=== PATIENT | female | born 1985 | race Hispanic/Latino ===

== ENCOUNTER 2017-07-19 22:57 | Emergency (ER) | payer OTHER ==
[2017-07-19 23:16] VITALS: TEMP 98
--- NOTE | 2017-07-20 00:03 | ED PDOC ---
Arrival/HPI - General Chief Complaint: Upper Extremity Problem/Injury Time Seen by Provider: 07/19/17 23:59 Historian: Patient - History of Present Illness Narrative History of Present Illness (Text): 07/19/17 23:59 32 y/o female, Past Medical History - Infectious Disease Hx of Infectious Diseases: None - Cardiac Hx Hypertension: Yes - Endocrine/Metabolic Hx Diabetes Mellitus Type 2: Yes - Hematological/Oncological Hx Hepatitis B: Yes - Psychiatric Hx Substance Use: No - Surgical History Hx Gastric Bypass Surgery: Yes (Gastric Sleeve) Family/Social History Smoking Status: Never Smoked Hx Alcohol Use: No Hx Substance Use: No Allergies/Home Meds Allergies/Adverse Reactions: Allergies No Known Allergies Allergy (Verified 07/19/17 23:16) Home Medications: Home Meds Medication Instructions Recorded Confirmed No Known Home Med 07/19/17 07/19/17 Physical Exam Vital Signs Temp Pulse Resp BP Pulse Ox 07/19/17 23:12 98.0 F 97 H 16 172/96 H 99 Disposition/Present on Arrival - Present on Arrival History of DVT/PE: No History of Uncontrolled Diabetes: No Urinary Catheter: No History of Decub. Ulcer: No History Surgical Site Infection Following: None - Disposition
--- NOTE | 2017-07-20 00:25 | ED PDOC ---
Arrival/HPI - General Historian: Patient - History of Present Illness Time/Duration: < week Symptom Onset: Sudden Symptom Course: Unchanged Quality: Aching Severity Level: 7 Activities at Onset: Rest, Light Context: Home, Work <Jluis Peña - Last Filed: 07/20/17 01:48> <Jonah Sewell - Last Filed: 07/20/17 01:51> - General Chief Complaint: Upper Extremity Problem/Injury Time Seen by Provider: 07/19/17 23:59 - History of Present Illness Narrative History of Present Illness (Text): 07/20/17 00:20 Ms. Wu is a 32 year old female with a past medical history significant for PCOS and DM2 who [place] [facility] [place] with a chief complaint of intermittent left shoulder pain and chest pain with deep breathing for the past month. Patient states that she has had the left shoulder pain for one months duration. She states that it has been moderately controlled with ibuprofen and changes in her posture and daily routine. Over the past few weeks she also complains of chest pain in the lower left lateral chest wall with deep breathing. She states that this has made her SOB on occasion but denies any SOB when the pain is not present. She denies any trauma, recent travel, clotting/blood disorders or any recent surgery. Patient also denies fever, chills, headache, changes in vision, sore throat, neck pain/stiffness, palpitations, cough, abdominal pain, N/V/D/C, burning/pain with urination, rashes or any numbness/tingling/weakness of any extremity. (Jluis Peña) Past Medical History - Provider Review Nursing Documentation Reviewed: Yes - Travel History Have you recently traveled outside [place] w/in the past 3 mons?: No - Past History Past History: No Previous - Infectious Disease Hx of Infectious Diseases: None - Cardiac Hx Hypertension: Yes - Endocrine/Metabolic Hx Diabetes Mellitus Type 2: Yes - Hematological/Oncological Hx Hepatitis B: Yes - Psychiatric Hx Substance Use: No - Surgical History Hx Gastric Bypass Surgery: Yes (Gastric Sleeve) <Jluis Peña - Last Filed: 07/20/17 01:48> Family/Social History - Physician Review Nursing Documentation Reviewed: Yes Family/Social History: No Known Family HX Smoking Status: Never Smoked Hx Alcohol Use: No Hx Substance Use: No <Jluis Peña - Last Filed: 07/20/17 01:48> Allergies/Home Meds <Jluis Peña - Last Filed: 07/20/17 01:48> <MelodieJonah - Last Filed: 07/20/17 01:51> Allergies/Adverse Reactions: Allergies No Known Allergies Allergy (Verified 07/19/17 23:16) Review of Systems - Physician Review All systems were reviewed & negative as marked: Yes - Review of Systems Constitutional: Normal. absent: Fevers Eyes: Normal. absent: Vision Changes ENT: Normal Respiratory: SOB (a/w chest pain only). absent: Normal, Cough, Sputum, Wheezing Cardiovascular: Chest Pain (Lower left lateral chest wall). absent: Normal, Palpitations Gastrointestinal: Normal. absent: Abdominal Pain, Constipation, Diarrhea, Nausea, Vomiting Genitourinary Female: Normal Musculoskeletal: Arthralgias (Left shoulder pain). absent: Normal, Back Pain, Neck Pain, Myalgias Skin: Normal. absent: Rash Neurological: Normal. absent: Headache Endocrine: Normal Hemo/Lymphatic: Normal Psychiatric: Normal <Jluis Peña - Last Filed: 07/20/17 01:48> Physical Exam Vital Signs Reviewed: Yes Temperature: Afebrile Blood Pressure: Hypertensive Pulse: Regular Respiratory Rate: Normal Appearance: Positive for: Well-Appearing, Non-Toxic, Comfortable Pain Distress: None Mental Status: Positive for: Alert and Oriented X 3 - Systems Exam Head: Present: Atraumatic, Normocephalic Pupils: Present: PERRL Extroacular Muscles: Present: EOMI Conjunctiva: Present: Normal Mouth: Present: Moist Mucous Membranes Neck: Present: Normal Range of Motion, Trachea Midline. No: Meningeal Signs, MIDLINE TENDERNESS, Paraspinal Tenderness, JVD, Lymphadenopathy Respiratory/Chest: Present: Clear to Auscultation, Good Air Exchange, Tender to Palpation (TTP on lower left lateral chest wall). No: Respiratory Distress, Accessory Muscle Use, Wheezes, Decreased Breath Sounds, Rales, Rhonchi, Tachypneic Cardiovascular: Present: Regular Rate and Rhythm, Normal S1, S2, Peripheal Pulses Present. No: Murmurs, Irregular Rhythm, Tachycardic, Bradycardic Abdomen: Present: Normal Bowel Sounds. No: Tenderness, Distention, Peritoneal Signs Back: Present: Normal Inspection. No: CVA Tenderness, Midline Tenderness, Paraspinal Tenderness Upper Extremity: Present: NORMAL PULSES, Tenderness (Left shoulder/trap tenderness), Neurovascularly Intact, Capillary Refill < 2s, Other ( Hypertonicity of left upper trapezius). No: Normal Inspection, Cyanosis, Edema , Normal ROM (Decreased ROM in L shoulder d/t pain), Swelling, Erythema, Temperature Abnormalties, Deformity Lower Extremity: Present: Normal Inspection, NORMAL PULSES, Normal ROM. No: Edema, CALF TENDERNESS, Otilia's Sign Neurological: Present: GCS=15, CN II-XII Intact, Speech Normal Skin: Present: Warm, Dry, Normal Color. No: Rashes Lymphatic: No: Cervical Adenopathy Psychiatric: Present: Alert, Oriented x 3, Normal Insight, Normal Concentration <Jluis Peña - Last Filed: 07/20/17 01:48> Vital Signs Temp Pulse Resp BP Pulse Ox 07/20/17 01:42 90 18 150/90 98 07/20/17 00:42 97 H 18 152/102 H 100 07/19/17 23:12 98.0 F 97 H 16 172/96 H 99 Medical Decision Making - RAD Interpretation [employer]: ED Physician <Jluis Peña - Last Filed: 07/20/17 01:48> <Jonah Sewell - Last Filed: 07/20/17 01:51> ED Course and Treatment: 07/20/17 00:28 Impression: 32 year old female with a past medical history significant for PCOS and DM2 who [place] [facility] [place] with a chief complaint of intermittent left shoulder pain and chest pain with deep breathing for the past month Plan: -Ibuprofen, Tylenol and Flexeril PO -Chest X-Ray -Left shoulder X-ray -Reassess and disposition Prior Visits: No previous visits (Jluis Peña) Impression: Pt seen and evaluated with medical billing instructor. Pt, whose past medical history includes PCOS and diabetes, presented for left shoulder pain and chest pain with deep inspiration.Aware and agree with HPI, clinical findings, plan, and management. Plan: -- Chest X-ray -- XR Left Shoulder -- Motrin -- Tylenol -- Flexeril -- Reassess and disposition (Jonah Sewell) - RAD Interpretation Radiology Orders: 07/20/17 00:05 CHEST PORTABLE [RAD] Stat 07/20/17 00:07 SHOULDER LEFT [RAD] Stat - Medication Orders Current Medication Orders: Discontinued Medications Acetaminophen (Tylenol 325mg Tab) 975 mg PO STAT STA Stop: 07/20/17 00:07 Last Admin: 07/20/17 00:21 Dose: 975 mg Cyclobenzaprine HCl (Flexeril) 10 mg PO STAT STA Stop: 07/20/17 00:07 Last Admin: 07/20/17 00:21 Dose: 10 mg Ibuprofen (Motrin Tab) 600 mg PO STAT STA Stop: 07/20/17 00:07 Last Admin: 07/20/17 00:21 Dose: 600 mg - PA / INSULATION AND FLOORING ASSEMBLER / Resident Statement / has reviewed & agrees with the documentation as recorded. / has examined the patient and agrees with the treatment plan. <Jonah Sewell - Last Filed: 07/20/17 01:51> Disposition/Present on Arrival - Present on Arrival Any Indicators Present on Arrival: No History of DVT/PE: No History of Uncontrolled Diabetes: No Urinary Catheter: No History of Decub. Ulcer: No History Surgical Site Infection Following: None - Disposition Have Diagnosis and Disposition been Completed?: Yes Disposition Time: :31 Patient Plan: Discharge <Jluis Peña - Last Filed: 07/20/17 01:48> <Jonah Sewell - Last Filed: 07/20/17 01:51> - Disposition Diagnosis: Left shoulder pain Disposition: HOME/ ROUTINE Condition: STABLE Discharge Instructions (ExitCare): Thoracic Pain (ED), Shoulder Pain (ED) Additional Instructions: Ms. Wu, thank you for letting us take care of you today. Your provider was Dr. Sewell. You were treated for left shoulder pain and thoracic pain. The emergency medical care you received today was directed at your acute symptoms. If you were prescribed any medication, please fill it and take as directed. It may take several days for your symptoms to resolve. Return to the Emergency Department if your symptoms worsen, do not improve, or if you have any other problems. Please contact your doctor or call one of the physicians/clinics you have been referred to that are listed on the Patient Visit Information form that is included in your discharge packet. Bring any paperwork you were given at discharge with you along with any medications you are taking to your follow up visit. Our treatment cannot replace ongoing medical care by a primary care provider (PCP) outside of the emergency department. PLEASE FOLLOW UP WITH YOUR PRIMARY CARE DOCTOR WITHIN ONE TO TWO WEEKS Thank you for allowing the [facility] team to be part of your care today. If you had an X-Ray or CT scan: A Radiologist will review the ED reading if any change in treatment is needed we will contact you. Prescriptions: Cyclobenzaprine [Flexeril] 10 mg PO TID PRN #15 tab PRN Reason: Pain, Severe (8-10) Naproxen 500 mg PO BID PRN #20 tab PRN Reason: Pain, Moderate (4-7) Referrals: [facility], [Primary Care Provider] - Follow up with primary Eric Montalvo III, MD [Medical Doctor] - Follow up with primary Forms: [employer] (Luxembourgish), WORK NOTE
[2017-07-20 00:44] VITALS: RESP 18
[2017-07-20 01:43] VITALS: BP 150/90; PULSE 90; O2SAT 98
--- NOTE | 2017-07-20 08:21 | RAD ---
PROCEDURE: Radiographs of the Left Shoulder HISTORY: Left shoulder pain COMPARISON: No prior. FINDINGS: BONES: Normal. No fracture. JOINTS: Normal. Glenohumeral and acromioclavicular joints preserved. No osteoarthritis. SOFT TISSUES: Normal. OTHER FINDINGS: None. IMPRESSION: Normal radiographs of the left shoulder.
--- NOTE | 2017-07-20 08:22 | RAD ---
HISTORY: Pain with breathing COMPARISON: No prior. FINDINGS: LUNGS: No active pulmonary disease. PLEURA: No significant pleural effusion identified, no pneumothorax apparent. CARDIOVASCULAR: Normal. OSSEOUS STRUCTURES: No significant abnormalities. VISUALIZED UPPER ABDOMEN: Normal. OTHER FINDINGS: None. IMPRESSION: No active disease.
== END 2017-07-20 01:45 | disposition home or self-care (01) ==
LOC: MERGE 22:57 → ED 22:57
DX: M25.512 Pain in left shoulder (principal); I10 Essential (primary) hypertension; E11.9 Type 2 diabetes mellitus without complications; Z98.84 Bariatric surgery status; E28.2 Polycystic ovarian syndrome

== ENCOUNTER 2018-06-15 05:25 | Inpatient (IN) | payer BC, OTHER ==
--- NOTE | 2018-06-15 06:00 | ED PDOC ---
Arrival/HPI - General Chief Complaint: Shortness Of Breath Time Seen by Provider: 06/15/18 05:30 Historian: Patient - Critical Care Critical Care Minutes: 30 minutes - History of Present Illness Narrative History of Present Illness (Text): 06/15/18 05:55 32 year old female, whose past medical history includes diabetes, Gastric sleeve, and PCOS, presents with chest discomfort and shortness of breath since last night. Patient states the pain feels like a pressure sensation to chest. Patient states she has been having symptoms intermittently yesterday as well. Patient informs of a history of not taking her blood sugar medication. Patient also states she has a history of hypertensions which she does not take medication for. Patient denies any back pain or leg pain.No fever/chills. Time/Duration: 24 hours Symptom Course: Unchanged Quality: Pressure Context: Home Past Medical History - Provider Review Nursing Documentation Reviewed: Yes - Past History Past History: No Previous - Infectious Disease Hx of Infectious Diseases: None - Cardiac Hx Hypertension: Yes - Pulmonary Hx Respiratory Disorders: No - Neurological Hx Neurological Disorder: No - HEENT Hx HEENT Disorder: No - Renal Hx Renal Disorder: No - Endocrine/Metabolic Hx Diabetes Mellitus Type 2: Yes - Hematological/Oncological Hx Hepatitis B: Yes - Integumentary Hx Dermatological Disorder: No - Musculoskeletal/Rheumatological Hx Musculoskeletal Disorders: No Hx Falls: No - Gastrointestinal Hx Gastrointestinal Disorders: Yes (HX: HEP B) - Genitourinary/Gynecological Hx Genitourinary Disorders: Yes - Psychiatric Hx Psychophysiologic Disorder: No Hx Substance Use: No - Surgical History Hx Gastric Bypass Surgery: Yes (Gastric Sleeve) - Anesthesia Hx Anesthesia: Yes Family/Social History - Physician Review Nursing Documentation Reviewed: Yes Family/Social History: No Known Family HX Smoking Status: Never Smoked Hx Alcohol Use: No Hx Substance Use: No Allergies/Home Meds Allergies/Adverse Reactions: Allergies No Known Allergies Allergy (Verified 06/15/18 05:36) Home Medications: Home Meds Medication Instructions Recorded Confirmed No Known Home Med 06/15/18 06/15/18 Review of Systems - Physician Review All systems were reviewed & negative as marked: Yes - Review of Systems Respiratory: SOB Cardiovascular: Chest Pain (chest discomfort) Musculoskeletal: absent: Back Pain, Other (leg pain) Physical Exam Vital Signs Reviewed: Yes Vital Signs Pulse Resp BP Pulse Ox 06/15/18 05:40 112 H 18 179/100 H 100 Blood Pressure: Hypertensive Pulse: Tachycardic Respiratory Rate: Normal Appearance: Positive for: Well-Appearing, Non-Toxic, Comfortable Pain Distress: None Mental Status: Positive for: Alert and Oriented X 3 - Systems Exam Head: Present: Atraumatic, Normocephalic Pupils: Present: PERRL Extroacular Muscles: Present: EOMI Conjunctiva: Present: Normal Ears: Present: NORMAL TM Mouth: Present: Moist Mucous Membranes Pharnyx: Present: Normal Neck: Present: Normal Range of Motion Respiratory/Chest: Present: Clear to Auscultation, Good Air Exchange. No: Respiratory Distress, Accessory Muscle Use Cardiovascular: Present: Normal S1, S2, Tachycardic. No: Murmurs Abdomen: No: Tenderness, Distention, Peritoneal Signs Back: Present: Normal Inspection Upper Extremity: Present: Normal Inspection. No: Cyanosis, Edema Lower Extremity: Present: Normal Inspection, CALF TENDERNESS. No: Edema, Swelling Neurological: Present: GCS=15, CN II-XII Intact, Speech Normal, Motor Func Grossly Intact, Normal Sensory Function Skin: Present: Warm, Dry, Normal Color. No: Rashes Psychiatric: Present: Alert, Oriented x 3, Normal Insight, Normal Concentration Medical Decision Making ED Course and Treatment: 06/15/18 06:02 Impression: 32 year old female presents with chest discomfort and shortness of breath. Plan: -- EKG -- Chest X-ray -- Labs -- Reassess and disposition Prior Visits: Notes and results from previous visits were reviewed. Progress Notes: 06/15/18 06:38 CXR-No acute process - EKG Interpretation EKG Interpretation (Text): 06/15/18 06:20 EKG- Sinus tachycardia @103,NSSTT changes Interpreted by ED Physician: Yes Type: 12 lead EKG - Scribe Statement The provider has reviewed the documentation as recorded by the Shahram Prabhakar Provider Scribe Attestation: All medical record entries made by the Scribe were at my direction and personally dictated by me. I have reviewed the chart and agree that the record accurately reflects my personal performance of the history, physical exam, medical decision making, and the department course for this patient. I have also personally directed, reviewed, and agree with the discharge instructions and disposition. Disposition/Present on Arrival - Present on Arrival Any Indicators Present on Arrival: No History of DVT/PE: No History of Uncontrolled Diabetes: No Urinary Catheter: No History of Decub. Ulcer: No History Surgical Site Infection Following: None - Disposition Have Diagnosis and Disposition been Completed?: No Diagnosis: Chest pain, DKA (diabetic ketoacidosis) Disposition: HOSPITALIZED Disposition Time: 07:00 Patient Problems: Current Active Problems Problem Status Onset Chest pain Acute Condition: GUARDED Discharge Instructions (ExitCare): Chest Pain (ED) Forms: [employer] (Chinese)
[2018-06-15 06:26] LABS: MEAN CELL VOLUME 85.5 fl (80.0-105.0); MEAN CORPUSCULAR HEMOGLOBIN 29.3 pg (25.0-35.0); MEAN CORPUSCULAR HGB CONC 34.2 g/dl (31.0-37.0); MEAN PLATELET VOLUME 10.5 fl (7.0-11.0); RBC 5.12 10^6/uL (3.5-6.1); WHITE BLOOD COUNT 14.4 10^3/uL (4.5-11.0)
[2018-06-15 06:35] LABS: INR 0.91; PROTHROMBIN TIME 10.5 SECONDS (9.4-12.5)
[2018-06-15 06:46] LABS: ALB/GLOB RATIO 0.9 (1.1-1.8); ALBUMIN 4.7 g/dL (3.0-4.8); ALT/SGPT 24 U/L (7-56); AST/SGOT 33 U/L (14-36); BLOOD UREA NITROGEN 27 mg/dL (7-21); CALCIUM 9.5 mg/dL (8.4-10.5); GFR NON-AFRICAN AMERICAN > 60
[2018-06-15 06:47] LABS: B-TYPE NATRIURETIC PEPTIDE 50.6 pg/mL (0-450)
[2018-06-15] MEDS ORDERED: Sodium Chloride 0.9% 1,000 ML IV STA ×3 (06:51→11:23)
[2018-06-15] MEDS ORDERED: Insulin Regular 1 UNITS/0.01 ML ML IVP STA (06:54)
[2018-06-15] MEDS ORDERED: Insulin Regular 100 UNITS in Sodium Chloride 0.9% 99 ML IV PRN (06:55)
[2018-06-15 07:34] LABS: TROPONIN I < 0.01 ng/mL
[2018-06-15 07:42] LABS: ARTERIAL BLOOD GAS HEMOGLOBIN 14.1 g/dL (11.7-17.4); ARTERIAL BLOOD GAS O2 CAPACITY 19.9 mL/dl (16-24); ARTERIAL BLOOD GAS O2 CONTENT 19.4 ML/dl (15-23); ARTERIAL BLOOD GAS O2 SAT 97.5 % (95-98); ARTERIAL BLOOD GAS PCO2 14 mm/Hg (35-45); ARTERIAL BLOOD GAS TCO2 5.6 mmol.L (22-28)
[2018-06-15 07:45] LABS: ARTERIAL BLOOD GAS HCO3 5.2 mmol/L (21-28); ARTERIAL BLOOD GAS PH 7.18 (7.35-7.45)
[2018-06-15] MEDS ORDERED: Sodium Chloride 0.9% 1,000 ML IV SCH (09:45)
--- NOTE | 2018-06-15 10:06 | RAD ---
HISTORY: sob COMPARISON: Chest x-ray performed 07/20/17 TECHNIQUE: Chest, one view. FINDINGS: Examination limited by habitus. LUNGS: No focal consolidation. Please note that chest x-ray has limited sensitivity for the detection of pulmonary masses. PLEURA: No significant pleural effusion identified. No definite pneumothorax . CARDIOVASCULAR: The cardiomediastinal silhouette appears within normal limits of size. No significant atherosclerotic calcification present. OSSEOUS STRUCTURES: No acute osseous abnormality identified. VISUALIZED UPPER ABDOMEN: Unremarkable. OTHER FINDINGS: None. IMPRESSION: No focal consolidation, significant pleural effusion, or definite pneumothorax identified.
--- NOTE | 2018-06-15 11:17 | CARD ---
APPROVED REPORT Date of service: 06/15/2018 EKG Measurement Heart [id number] <Conclusion> Sinus tachycardia NSSTW changes
--- NOTE | 2018-06-15 11:23 | CP.PCM.CON ---
<Justin Quispe - Last Filed: 06/15/18 14:30> History of Present Illness - History of Present Illness History of Present Illness: CRITICAL CARE PROGRESS NOTE FOR DR. SOL Quispe PGY-1 CC: Shortness of breath 32 y/o F with PMHx of DM (diagnosed [id number]) non-compliant with meds, gastric sleeve (2015), PCOS, HTN [place] [facility] [place] with complaints of chest discomfort and difficulty breathing since last night. She reports that she recently has a upper respiratory infection about 2 weeks ago and was treated with ceftriaxone and solu-medrol. She also reports polyuria, polydipsia and episode of vomiting. She denies fevers, chills, headache, dizziness, chest palpitations, constipation, diarrhea. PMHx: DM, PCOS, HTN PSH: Gastric sleeve (2015) All: NKDA FH: Mother: DM, Father: [place], Prediabetes Meds: Metformin, PMD: Dr. Baumann Review of Systems - Review of Systems Review of Systems: per HPI Past Patient History - Infectious Disease Hx of Infectious Diseases: None - Past Medical History & Family History Past Medical History?: Yes - Past Social History Smoking Status: Never Smoked - CARDIAC Hx Hypertension: Yes - PULMONARY Hx Respiratory Disorders: No - NEUROLOGICAL Hx Neurological Disorder: No - HEENT Hx HEENT Problems: No - RENAL Hx Chronic Kidney Disease: No - ENDOCRINE/METABOLIC Hx Diabetes Mellitus Type 2: Yes - HEMATOLOGICAL/ONCOLOGICAL Hx Hepatitis B: Yes - INTEGUMENTARY Hx Dermatological Problems: No - MUSCULOSKELETAL/RHEUMATOLOGICAL Hx Musculoskeletal Disorders: No Hx Falls: No - GASTROINTESTINAL Hx Gastrointestinal Disorders: Yes (HX: HEP B) - GENITOURINARY/GYNECOLOGICAL Hx Genitourinary Disorders: Yes - PSYCHIATRIC Hx Psychophysiologic Disorder: No Hx Substance Use: No - SURGICAL HISTORY Hx Gastric Bypass Surgery: Yes (Gastric Sleeve) - ANESTHESIA Hx Anesthesia: Yes Meds Allergies/Adverse Reactions: Allergies Allergy/AdvReac Type Severity Reaction Status Date / Time No Known Allergies Allergy Verified 06/15/18 13:39 - Medications Medications: Current Medications Insulin Human Regular 100 (units/ Sodium Chloride) 100 mls @ 8 mls/hr IV .[id number] PRN; Protocol PRN Reason: TITRATE PER MD ORDER Last Titration: 06/15/18 10:05 Dose: 5 units/hr, 5 mls/hr Sodium Chloride (Sodium Chloride 0.9%) 1,000 mls @ 100 mls/hr IV .Q10H ZA Last Admin: 06/15/18 09:50 Dose: 100 mls/hr Physical Exam - Constitutional Appears: Well, Non-toxic, No Acute Distress - Head Exam Head Exam: NORMAL INSPECTION, NORMOCEPHALIC - Eye Exam Eye Exam: EOMI, Normal appearance - ENT Exam ENT Exam: Mucous Membranes Moist, Normal Exam - Neck Exam Neck exam: Positive for: Normal Inspection. Negative for: Meningismus - Respiratory Exam Respiratory Exam: Clear to Auscultation Bilateral, NORMAL BREATHING PATTERN - Cardiovascular Exam Cardiovascular Exam: Tachycardia, +S1, +S2 - GI/Abdominal Exam GI & Abdominal Exam: Soft. absent: Tenderness - Extremities Exam Extremities exam: Positive for: normal inspection. Negative for: calf tenderness - Back Exam Back exam: NORMAL INSPECTION - Neurological Exam Neurological exam: Alert, CN II-XII Intact, Oriented x3 - Psychiatric Exam Psychiatric exam: Normal Affect, Normal Mood - Skin Skin Exam: Dry, Intact, Warm Results - Vital Signs Recent Vital Signs: Last Vital Signs Temp 98.0 F 06/15/18 08:21 Pulse 98 H 06/15/18 10:10 Resp 32 H 06/15/18 10:10 BP 141/89 06/15/18 10:00 Pulse Ox 100 06/15/18 10:10 - Labs Result Diagrams: 06/15/18 06:00 06/15/18 06:00 Labs: Laboratory Results - last 24 hr 06/15/18 06/15/18 06/15/18 06:00 06:00 06:00 WBC 14.4 H RBC 5.12 Hgb 15.0 Hct 43.8 MCV 85.5 MCH 29.3 MCHC 34.2 RDW 13.0 Plt Count 322 MPV 10.5 PT 10.5 INR 0.91 APTT 26.0 D-Dimer, Quantitative 298 H pCO2 pO2 HCO3 ABG pH ABG Total CO2 ABG O2 Saturation ABG O2 Content ABG Base Excess ABG Hemoglobin ABG Carboxyhemoglobin POC ABG HHb (Measured) ABG Methemoglobin ABG O2 Capacity Hgb O2 Saturation FiO2 Sodium 136 Potassium 5.3 H Chloride 104 Carbon Dioxide 7 L Anion Gap 31 H BUN 27 H Creatinine 0.7 Est GFR ( Amer) > 60 Est GFR (Non-Af Amer) > 60 POC Glucose (mg/dL) Random Glucose 593 H* Calcium 9.5 Phosphorus Magnesium Total Bilirubin 0.6 AST 33 ALT 24 Alkaline Phosphatase 111 Lactate Dehydrogenase 736 H Total Creatine Kinase 58 Troponin I < 0.01 NT-Pro-B Natriuret Pep 50.6 Total Protein 9.8 H Albumin 4.7 Globulin 5.1 Albumin/Globulin Ratio 0.9 L 06/15/18 06/15/18 06/15/18 06:00 07:01 07:40 WBC RBC Hgb Hct MCV MCH MCHC RDW Plt Count MPV PT INR APTT D-Dimer, Quantitative pCO2 14 L* pO2 144.0 H HCO3 5.2 L* ABG pH 7.18 L* ABG Total CO2 5.6 L ABG O2 Saturation 97.5 ABG O2 Content 19.4 ABG Base Excess -20.7 L ABG Hemoglobin 14.1 ABG Carboxyhemoglobin 0.3 L POC ABG HHb (Measured) 2.5 ABG Methemoglobin 0.5 ABG O2 Capacity 19.9 Hgb O2 Saturation 96.7 FiO2 21.0 Sodium Potassium Chloride Carbon Dioxide Anion Gap BUN Creatinine Est GFR ( Amer) Est GFR (Non-Af Amer) POC Glucose (mg/dL) 427 H* Random Glucose Calcium Phosphorus 6.3 H Magnesium 2.6 H Total Bilirubin AST ALT Alkaline Phosphatase Lactate Dehydrogenase Total Creatine Kinase Troponin I NT-Pro-B Natriuret Pep Total Protein Albumin Globulin Albumin/Globulin Ratio 06/15/18 06/15/18 08:46 09:55 WBC RBC Hgb Hct MCV MCH MCHC RDW Plt Count MPV PT INR APTT D-Dimer, Quantitative pCO2 pO2 HCO3 ABG pH ABG Total CO2 ABG O2 Saturation ABG O2 Content ABG Base Excess ABG Hemoglobin ABG Carboxyhemoglobin POC ABG HHb (Measured) ABG Methemoglobin ABG O2 Capacity Hgb O2 Saturation FiO2 Sodium Potassium Chloride Carbon Dioxide Anion Gap BUN Creatinine Est GFR ( Amer) Est GFR (Non-Af Amer) POC Glucose (mg/dL) 360 H 252 H Random Glucose Calcium Phosphorus Magnesium Total Bilirubin AST ALT Alkaline Phosphatase Lactate Dehydrogenase Total Creatine Kinase Troponin I NT-Pro-B Natriuret Pep Total Protein Albumin Globulin Albumin/Globulin Ratio Assessment & Plan - Assessment and Plan (Free Text) Assessment: 32 y/o F with PMHx of DM, HTN, PCOS presented [place] [facility] [place] complaints of shortness of breath and chest tightness. She was found in the ED to have glucose level in the ED of 427 with an anion gap of 25. She was given an insulin bolus of 10u, give 2L bolus of NS and started on an insulin drip. She was transferred to ICU for management of DKA. Plan: Neuro: AxO x 3 No focal deficits Reorient as necessary Cardiovascular: RRR BP: 140s/90s Maintain MAP>65 Initial troponin (-) Pulm: CTA b/l Saturating well on 2L NC Maintain saturations >90% GI: Resume diet when anion gap closes and pt can tolerate food 2L NS bolus give. Continue 1 more L NS bolus NS@100mls/hr /Renal: Received 3L bolus of NS Switch to D5/1/2NS once glucose drops below BMP q4h FS q1H ABG shows metabolic acidosis with respiratory alkalosis Endocrine: DKA Continue insulin drip @8u/hr Complete 3rd NS 1L bolus Start D5/1/2NS @150 when glucose <200 Switch to SC insulin when anion gap <12 BMP q4H FS q1h Heme: H/H stable Coags stable ID: Afebrile Leukocytosis at 14.4 Likely reactive DVT/GI PPx: Hep/Ptx Case seen, examined and discussed with attending physician, Dr. Adames <Paige Adames - Last Filed: 06/15/18 16:16> Meds - Medications Medications: Current Medications Heparin Sodium (Porcine) (Heparin) 5,000 units SC Q12 ZA; Protocol Dextrose/Sodium Chloride (Dextrose 5%/0.45% Ns 1000 Ml) 1,000 mls @ 150 mls/hr IV .Q6H40M ZA Last Admin: 06/15/18 12:30 Dose: 150 mls/hr Insulin Detemir (Levemir) 30 unit SC HS ZA Insulin Human Lispro (Humalog) 10 units SC AC ZA Last Admin: 06/15/18 15:10 Dose: 10 u Pantoprazole Sodium (Protonix Inj) 40 mg IVP DAILY ZA Results - Vital Signs Recent Vital Signs: Last Vital Signs Temp 98.0 F 06/15/18 08:21 Pulse 90 06/15/18 15:10 Resp 16 06/15/18 15:10 BP 147/82 06/15/18 15:00 Pulse Ox 100 06/15/18 15:10 - Labs Result Diagrams: 06/15/18 06:00 06/15/18 13:40 Labs: Laboratory Results - last 24 hr 06/15/18 06/15/18 06/15/18 06:00 06:00 06:00 WBC 14.4 H RBC 5.12 Hgb 15.0 Hct 43.8 MCV 85.5 MCH 29.3 MCHC 34.2 RDW 13.0 Plt Count 322 MPV 10.5 PT 10.5 INR 0.91 APTT 26.0 D-Dimer, Quantitative 298 H pCO2 pO2 HCO3 ABG pH ABG Total CO2 ABG O2 Saturation ABG O2 Content ABG Base Excess ABG Hemoglobin ABG Carboxyhemoglobin POC ABG HHb (Measured) ABG Methemoglobin ABG O2 Capacity Hgb O2 Saturation FiO2 Sodium 136 Potassium 5.3 H Chloride 104 Carbon Dioxide 7 L Anion Gap 31 H BUN 27 H Creatinine 0.7 Est GFR ( Amer) > 60 Est GFR (Non-Af Amer) > 60 POC Glucose (mg/dL) Random Glucose 593 H* Hemoglobin A1c Calcium 9.5 Phosphorus Magnesium Total Bilirubin 0.6 AST 33 ALT 24 Alkaline Phosphatase 111 Lactate Dehydrogenase 736 H Total Creatine Kinase 58 Troponin I < 0.01 NT-Pro-B Natriuret Pep 50.6 Total Protein 9.8 H Albumin 4.7 Globulin 5.1 Albumin/Globulin Ratio 0.9 L 06/15/18 06/15/18 06/15/18 06:00 06:00 07:01 WBC RBC Hgb Hct MCV MCH MCHC RDW Plt Count MPV PT INR APTT D-Dimer, Quantitative pCO2 pO2 HCO3 ABG pH ABG Total CO2 ABG O2 Saturation ABG O2 Content ABG Base Excess ABG Hemoglobin ABG Carboxyhemoglobin POC ABG HHb (Measured) ABG Methemoglobin ABG O2 Capacity Hgb O2 Saturation FiO2 Sodium Potassium Chloride Carbon Dioxide Anion Gap BUN Creatinine Est GFR ( Amer) Est GFR (Non-Af Amer) POC Glucose (mg/dL) 427 H* Random Glucose Hemoglobin A1c 12.0 H Calcium Phosphorus 6.3 H Magnesium 2.6 H Total Bilirubin AST ALT Alkaline Phosphatase Lactate Dehydrogenase Total Creatine Kinase Troponin I NT-Pro-B Natriuret Pep Total Protein Albumin Globulin Albumin/Globulin Ratio 06/15/18 06/15/18 06/15/18 07:40 08:46 09:55 WBC RBC Hgb Hct MCV MCH MCHC RDW Plt Count MPV PT INR APTT D-Dimer, Quantitative pCO2 14 L* pO2 144.0 H HCO3 5.2 L* ABG pH 7.18 L* ABG Total CO2 5.6 L ABG O2 Saturation 97.5 ABG O2 Content 19.4 ABG Base Excess -20.7 L ABG Hemoglobin 14.1 ABG Carboxyhemoglobin 0.3 L POC ABG HHb (Measured) 2.5 ABG Methemoglobin 0.5 ABG O2 Capacity 19.9 Hgb O2 Saturation 96.7 FiO2 21.0 Sodium Potassium Chloride Carbon Dioxide Anion Gap BUN Creatinine Est GFR ( Amer) Est GFR (Non-Af Amer) POC Glucose (mg/dL) 360 H 252 H Random Glucose Hemoglobin A1c Calcium Phosphorus Magnesium Total Bilirubin AST ALT Alkaline Phosphatase Lactate Dehydrogenase Total Creatine Kinase Troponin I NT-Pro-B Natriuret Pep Total Protein Albumin Globulin Albumin/Globulin Ratio 06/15/18 06/15/18 06/15/18 11:10 11:59 13:01 WBC RBC Hgb Hct MCV MCH MCHC RDW Plt Count MPV PT INR APTT D-Dimer, Quantitative pCO2 pO2 HCO3 ABG pH ABG Total CO2 ABG O2 Saturation ABG O2 Content ABG Base Excess ABG Hemoglobin ABG Carboxyhemoglobin POC ABG HHb (Measured) ABG Methemoglobin ABG O2 Capacity Hgb O2 Saturation FiO2 Sodium Potassium Chloride Carbon Dioxide Anion Gap BUN Creatinine Est GFR ( Amer) Est GFR (Non-Af Amer) POC Glucose (mg/dL) 198 H 182 H 145 H Random Glucose Hemoglobin A1c Calcium Phosphorus Magnesium Total Bilirubin AST ALT Alkaline Phosphatase Lactate Dehydrogenase Total Creatine Kinase Troponin I NT-Pro-B Natriuret Pep Total Protein Albumin Globulin Albumin/Globulin Ratio 06/15/18 06/15/18 13:40 14:13 WBC RBC Hgb Hct MCV MCH MCHC RDW Plt Count MPV PT INR APTT D-Dimer, Quantitative pCO2 pO2 HCO3 ABG pH ABG Total CO2 ABG O2 Saturation ABG O2 Content ABG Base Excess ABG Hemoglobin ABG Carboxyhemoglobin POC ABG HHb (Measured) ABG Methemoglobin ABG O2 Capacity Hgb O2 Saturation FiO2 Sodium 138 Potassium 4.1 Chloride 112 H Carbon Dioxide 14 L Anion Gap 16 BUN 18 Creatinine 0.4 L Est GFR ( Amer) > 60 Est GFR (Non-Af Amer) > 60 POC Glucose (mg/dL) 151 H Random Glucose 151 H Hemoglobin A1c Calcium 8.3 L Phosphorus Magnesium Total Bilirubin AST ALT Alkaline Phosphatase Lactate Dehydrogenase Total Creatine Kinase Troponin I NT-Pro-B Natriuret Pep Total Protein Albumin Globulin Albumin/Globulin Ratio Addendum Addendum: 06/15/18 16:15 ICU Attending Addendum Patient seen and examined. Case reviewed on round with housestaff. Agree with resident note above with the following additions/exceptions: 32F with hx of gastric sleeve in 2016 and DM2 dx prior to that here with DKA due to non-compliance has not followed up with medical care gap acidosis cont insulin drip change fluids to D51/2 when finger stick <250 transition of insulin IV to SQ once gap closed and bicarb normalized diabetic diet diabetic education - I spent 20 minutes counseling her on important of dm control and risk associated with poor control rest of care above Paige Adames MD [employer] Field Supervisor
[2018-06-15] MEDS ORDERED: Dextrose 5%/0.45% NS 1,000 ML IV SCH (12:15)
[2018-06-15 14:10] LABS: BLOOD UREA NITROGEN 18 mg/dL (7-21); CALCIUM 8.3 mg/dL (8.4-10.5); GFR NON-AFRICAN AMERICAN > 60
[2018-06-15] MEDS ORDERED: Pneumococcal 23-Valent Vaccine IM ONE (14:17)
[2018-06-15] MEDS ORDERED: Influenza Vaccine 60 mcg/0.5 mL SYR (4YR UP) IM ONE (14:17)
[2018-06-15 14:18] VITALS: BMI 33.6
[2018-06-15] MEDS: Insulin Lispro 1 UNITS/0.01 ML SC SCH ×2 (15:10→17:15)
[2018-06-15] MEDS ORDERED: Insulin Lispro 1 UNITS/0.01 ML SC ONE (17:10)
[2018-06-15] MEDS: Insulin Reg-MEDIUM-Coverage SC SCH ×2 (17:39→22:00)
[2018-06-15 17:49] LABS: BLOOD UREA NITROGEN 17 mg/dL (7-21); CALCIUM 8.5 mg/dL (8.4-10.5); GFR NON-AFRICAN AMERICAN > 60
[2018-06-15] MEDS: Insulin Detemir 100 units/ml Vial (Levemir) SC SCH (21:56)
[2018-06-15 22:56] LABS: BLOOD UREA NITROGEN 19 mg/dL (7-21); CALCIUM 8.1 mg/dL (8.4-10.5); GFR NON-AFRICAN AMERICAN > 60
[2018-06-16 01:18] LABS: BLOOD UREA NITROGEN 16 mg/dL (7-21); CALCIUM 8.4 mg/dL (8.4-10.5); GFR NON-AFRICAN AMERICAN > 60
[2018-06-16 06:16] LABS: BASO # 0.01 K/mm3 (0.0-2.0); BASO % 0.1 % (0.0-3.0); EOS % 0.4 % (1.5-5.0); GRAN # 3.5 (1.4-6.5); GRAN % 36.6 % (50.0-68.0); HEMOGLOBIN 13.1 g/dL (12.0-16.0); LYMPH # 5.3 (1.2-3.4); LYMPH % 54.8 % (22.0-35.0); MEAN CELL VOLUME 83.5 fl (80.0-105.0); MEAN CORPUSCULAR HEMOGLOBIN 28.4 pg (25.0-35.0); MEAN CORPUSCULAR HGB CONC 33.9 g/dl (31.0-37.0); MONO # 0.8 (0.1-0.6); MONO % 8.1 % (1.0-6.0); RBC 4.62 10^6/uL (3.5-6.1); WHITE BLOOD COUNT 9.6 10^3/uL (4.5-11.0)
[2018-06-16 06:30] LABS: BLOOD UREA NITROGEN 15 mg/dL (7-21); CALCIUM 8.3 mg/dL (8.4-10.5); GFR NON-AFRICAN AMERICAN > 60
[2018-06-16] MEDS: Insulin Lispro 1 UNITS/0.01 ML SC SCH ×3 (07:52→16:57)
[2018-06-16] MEDS: Insulin Reg-MEDIUM-Coverage SC SCH ×4 (07:52→21:28)
[2018-06-16] MEDS ORDERED: Potassium Chloride 20 mEq/15 ml LIQ UD PO STA (10:24)
[2018-06-16] MEDS ORDERED: Sodium Chloride 0.45% 1,000 ML IV SCH (10:30)
--- NOTE | 2018-06-16 11:03 | PN ---
DATE: 06/16/2018 ATG JAVA DEVELOPER NOTE LOCATION: [facility]. SUBJECTIVE: The patient is resting in bed comfortable, eating breakfast. States that no complaints of fever, chills, nausea or vomiting. No abdominal pain. No chest pain. No wheezing or congestion. No diarrhea. The patient is off the insulin drip, is getting her subcu insulin as well as the Levemir. PHYSICAL EXAMINATION: VITAL SIGNS: Physical exam note that her temperature is 98.4, her pulse is 98, respirations are 18 and BP is 147/86. SKIN: Warm and dry. HEENT: Head: Atraumatic, normocephalic. Eyes: Reactive to light. Ear, nose and throat seemed to be within normal limits. NECK: Supple. No JVD. No thyroid enlargement. No lymph nodes. HEART: Regular rate and rhythm. Normal S1 and S2. LUNGS: Reveal good breath sounds bilaterally. ABDOMEN: Soft, nontender. Normal bowel sounds. No organomegaly noted. GENITALIA AND RECTAL: Deferred. MUSCULOSKELETAL: No joint deformities. EXTREMITIES: Reveal no edema. NEUROLOGICAL: She seemed to be grossly intact. LABORATORY DATA: As far as her laboratories are concerned, her sodium is 135, potassium 3.5, chloride 110, CO2 of 18 with BUN of 15, creatinine of 0.4 and a glucose of 222. The patient's white count is 9.6, hemoglobin is 13.1, hematocrit 38.6 with platelets of 225,000. IMPRESSION: As far as my impression, this patient presented with diabetes ketoacidosis, has a history of diabetes and gastric sleeve, bypass as well as hypertension. She is noted to have hypokalemia, which will be replaced. PLAN: As far as our plan, we will continue IV fluids. We will continue with her with her Levemir and subcu insulin and fingersticks. The patient has been started on a diabetic diet and will continue with subcu heparin. She is also getting Protonix. The patient will be transferred to Med-Surg floor. Jarvis Gibson MD
[2018-06-16 12:04] VITALS: O2SAT 98
[2018-06-16] MEDS: Insulin Detemir 100 units/ml Vial (Levemir) SC SCH ×2 (21:29→22:11)
[2018-06-16] MEDS: Insulin Lispro (humaLOG) LOW Coverage SC SCH (22:11)
[2018-06-16] MEDS: Sodium Chloride 0.45% 1,000 ML IV SCH (23:47)
--- NOTE | 2018-06-17 02:11 | HP ---
DATE OF EXAM: 06/16/2018 The patient was seen and examined on 06/16/2018. CHIEF COMPLAINT: Shortness of breath. HISTORY OF PRESENT ILLNESS: Ms. Mili Wu is a 32-year-old female with past medical history of diabetes mellitus, gastric sleeve, PCOS, came to the emergency room with chest discomfort, shortness of breath since last night. The patient states that pain feels like pressure, sensation to the chest. The patient states that she had been having symptoms intermittently yesterday. As well, the patient informed , taking her blood sugar medications. The patient also states she has history of hypertension, which she does not take medication. Looks like she is very noncompliant lady. Denies back pain, fever and chills. We admitted the patient in the unit. Chest x-ray done and seen by the blintze roller. PAST MEDICAL HISTORY: Hypertension, diabetes mellitus type 2, hepatitis B, and history of gastric sleeve. FAMILY HISTORY: Father and mother, noncontributory. HABITS: Never smoked. No drugs. No ethanol. ALLERGIES: THE PATIENT IS NOT ALLERGIC WITH ANY MEDICATION. HOME MEDICATIONS: Denied. REVIEW OF SYSTEMS: The patient was seen and examined at the bedside. Looking comfortable. No nausea, vomiting or diarrhea. No hematuria. No hematochezia. No swelling of the legs. No chest pain. No palpitation. No headache, no dizziness. No fevers. No chills. PHYSICAL EXAMINATION VITAL SIGNS: Temperature 98.4, pulse 91, blood pressure 125/65, respiratory rate 20. HEENT: Head: Normocephalic, atraumatic. Eyes: PERRLA. Extraocular muscles intact. Conjunctivae clear. Nose patent. Mucous membrane moist. NECK: Supple. No carotid bruit. No JVD or thyromegaly. CHEST: Bilaterally symmetrical. HEART: S1, S2 positive. LUNGS: Clear to auscultation. ABDOMEN: Soft. Bowel sounds positive. No organomegaly. EXTREMITIES: No edema. No cyanosis. NEUROLOGIC: The patient is awake, alert, moving all four extremities. No focal deficit. LABORATORY DATA: On admission, white blood cell is 14.4, repeat is 9.6; hemoglobin 13.1; hematocrit 38.1; platelets 225. Sodium 135, potassium 3.5, BUN 16, creatinine 0.4, glucose 222 and calcium 8.3. ASSESSMENT AND PLAN: Ms. Mili Wu is a 32-year-old with leukocytosis; hypokalemia, replaced; hyperchloremia; diabetes mellitus, uncontrolled; hemoglobin A1c is 8.3; diabetic ketoacidosis; history of gastric sleeve/bypass as well; history of hypertension; electrolyte imbalance, replaced. Continue IV fluid. Continue with Levemir and subcutaneous insulin and fingerstick and sliding scale. Started diabetic diet, getting heparin and Protonix. We will transfer to medical/surgical floor as per blintze roller. Discussion done with the patient and nursing staff. Repeat labs. Radha Byrnes MD MTDD
--- NOTE | 2018-06-17 07:47 | CON ---
DATE: 06/15/2018 ENDOCRINOLOGY CONSULT LOCATION: Room# 360. HISTORY OF PRESENT ILLNESS: This is a 32-year-old female with known history of type 2 diabetes and hypertension, apparently has been off her diabetic and hypertensive medications for some time now and presents here with precordial chest pain and progressive shortness of breath, initially on exertion, with associated marked polyuria, nocturia, and polydipsia, and has been evaluated initially to be in diabetic ketoacidosis and dehydration and is now being referred for diabetic evaluation and management. PAST MEDICAL HISTORY: History of type 2 diabetes and hypertension and apparently discontinued her aforementioned medications with no recent medical followup. History of morbid obesity and underwent a gastric sleeve procedure. History of polycystic ovarian syndrome and previously on metformin therapy. There is an apparent history of hepatitis B and the exact details are yet to be elucidated. FAMILY HISTORY: Positive for hypertension and diabetes. SOCIAL HISTORY: The patient has a supportive family. No known substance use. REVIEW OF SYSTEMS: As mentioned above, admits to generalized body weakness with easy fatigability and tiredness and recent hypersomnolence and lethargy. Also, admits to progressive bouts of dizziness and lightheadedness, worse in the last few days prior to admission with associated visual blurring and bifrontal headaches. Admits to sudden onset of precordial chest pain with progressive shortness of breath, especially on exertion. Her oral intake has been variable with nausea and dyspepsia and vague upper abdominal pains. Also admits to marked polyuria, nocturia, and polydipsia, with lower extremity painful paresthesias. PHYSICAL EXAMINATION: GENERAL: An overweight female, in no apparent distress. VITAL SIGNS: Blood pressure 150/90, pulse of 100 beats per minute and regular, temperature 98, respirations 20. Height is 5 feet 7 inches, weight is 215 pounds. HEENT: Head normocephalic. Eyes anicteric with pink conjunctivae. Funduscopy not possible at this time. Ears, nose and throat otherwise normal. NECK: Supple. Thyroid gland is normal size. No carotid bruits or cervical adenopathy. CARDIOPULMONARY: Adynamic precordium. S1, S2 are rapid and regular. LUNGS: Clear to auscultation. ABDOMEN: Obese, soft, with positive bowel sounds. EXTREMITIES: No peripheral edema. Pulses are +2 bilaterally. LABORATORY DATA: The initial chemistries on admission showed a BUN of 27, sodium 136, potassium 5.3, chloride 104, CO2 was , glucose was 593, and creatinine 0.7. Her hemoglobin A1c is 12%. Her glucose levels have ranged from 252 to 360 and 427 mg/dL. Her latest CO2 is 18 as noted today. ASSESSMENT: This is a 32-year-old female with uncontrolled and decompensated type 2 insulin-requiring diabetes, presenting here with diabetic ketoacidosis and dehydration with spurious hyponatremia. PLAN OF MANAGEMENT: Because of the initial presentation of DKA and overt metabolic acidosis, the patient will most likely be insulin requiring and even actually insulin dependent at this point in time. This is the most optimal way to optimize metabolic control at this time and also to improve her clinical and metabolic symptoms accordingly. We will obtain a serum C-peptide which will ascertain the exact endogenous pancreatic reserve and this will also determine the need for future and long-term insulin therapy. The very elevated A1c will speak for itself that she clearly has been out of control for several months prior to this admission and clearly insulin requiring at this time. A basal and bolus insulin drug combination is more physiologic and will be undertaken at this time. We will increase her Levemir to 34 units subcu at bedtime daily to start tonight. We will also titrate her Humalog to 12 units subcu t.i.d. before meals to start tomorrow morning. We will modify her coverage scale to also a very low-dose Humalog coverage to obviate hypoglycemia and detailed orders have been given. We will continue the vigorous IV hydration as she still has resolving acidosis as noted with the last CO2 of 18 as noted. We will increase the normal saline infusion to 125 mL/hour as ordered and obtain serial chemistries and supplement accordingly as needed. We will initiate diabetic education to include insulin self-administration and home glucose monitoring. We will also consult our dietitian for nutritional counseling for healthier food choices and weight loss efforts accordingly, especially that she has had a previous gastric sleeve procedure. We will follow. Maria Luisa Mcmullen MD
[2018-06-17 08:12] LABS: BASO # 0.01 K/mm3 (0.0-2.0); BASO % 0.1 % (0.0-3.0); EOS % 0.5 % (1.5-5.0); GRAN # 3.07 (1.4-6.5); HEMOGLOBIN 13.8 g/dL (12.0-16.0); LYMPH # 4.4 (1.2-3.4); LYMPH % 53.9 % (22.0-35.0); MEAN CELL VOLUME 84.5 fl (80.0-105.0); MEAN CORPUSCULAR HEMOGLOBIN 28.5 pg (25.0-35.0); MEAN CORPUSCULAR HGB CONC 33.7 g/dl (31.0-37.0); MEAN PLATELET VOLUME 10.3 fl (7.0-11.0); MONO # 0.6 (0.1-0.6); MONO % 7.5 % (1.0-6.0); RBC 4.84 10^6/uL (3.5-6.1); RED CELL DISTRIBUTION WIDTH 13.1 % (11.5-14.5); WHITE BLOOD COUNT 8.1 10^3/uL (4.5-11.0)
[2018-06-17] MEDS: Insulin Lispro (humaLOG) LOW Coverage SC SCH ×4 (08:21→22:45)
[2018-06-17] MEDS: Insulin Lispro 1 UNITS/0.01 ML SC SCH ×3 (08:21→17:17)
[2018-06-17 08:22] LABS: IRON 83 ug/dL (45-180)
[2018-06-17 08:32] LABS: ALB/GLOB RATIO 0.8 (1.1-1.8); ALBUMIN 2.9 g/dL (3.0-4.8); ALT/SGPT 23 U/L (7-56); AST/SGOT 16 U/L (14-36); BLOOD UREA NITROGEN 13 mg/dL (7-21); CALCIUM 8.2 mg/dL (8.4-10.5); GFR NON-AFRICAN AMERICAN > 60; HDL CHOLESTEROL 31 mg/dL (29-60)
[2018-06-17 08:33] LABS: % IRON SATURATION 29 % (20-55); TOTAL IRON BINDING CAPACITY 283 ug/dL (265-497)
[2018-06-17 08:42] LABS: LDL CHOLESTEROL 166 mg/dL (0-129)
[2018-06-17] MEDS: Sodium Chloride 0.45% 1,000 ML IV SCH (09:18)
[2018-06-17] MEDS ORDERED: Sodium Chloride 0.45% 1,000 ML IV SCH (11:45)
[2018-06-17 12:37] LABS: FOLATE 6.9 ng/mL
[2018-06-17] MEDS: Potassium Chloride 20 mEq ER Tab PO SCH (17:18)
[2018-06-17] MEDS: Calcium-Vit D 250 mg-125 Units Tab UD PO SCH (17:18)
[2018-06-17] MEDS: Insulin Detemir 100 units/ml Vial (Levemir) SC SCH (21:43)
--- NOTE | 2018-06-17 22:21 | PN ---
DATE: 06/17/2018 HISTORY OF PRESENT ILLNESS: Patient seen and examined at the bedside, 06/17/2018, looking comfortable. Has heart-healthy diet. Seen by the equity holder. Ordered different testing. No fever. No chills. No nausea, vomiting, or diarrhea. No hematuria. No hematochezia. No swelling of the legs. No chest pain. No palpitations. PHYSICAL EXAMINATION: VITALS: Temperature 97.6, pulse 90, blood pressure 123/89, and respiratory rate 20. HEENT: Head normocephalic, atraumatic. Eyes, PERRLA. Extraocular muscles intact. Conjunctivae clear. Nose patent. Mucous membrane moist. NECK; Supple. No carotid bruit. No JVD or thyromegaly. CHEST: Bilateral symmetrical. HEART: S1 and S2 positive. LUNGS: Clear to auscultation. ABDOMEN: Soft. Bowel sounds positive. No organomegaly. EXTREMITIES: No edema. No cyanosis. NEUROLOGIC: Patient awake and alert, moving all four extremities. No focal deficits. MEDICATIONS: Heparin, potassium, Levemir, Protonix, NS. LABORATORY DATA: White blood cell 8.1, hemoglobin 13.8, hematocrit 40.9, platelets 233. Sodium 134, potassium 3.4, please replace. BUN 30, creatinine 0.4, glucose of 192, hemoglobin A1c is 12.1, calcium 8.2. ASSESSMENT AND PLAN: Mrs. Mili Wu, 32-year-old lady, who came with leukocytosis, improved; hypokalemia, we will replace; uncontrolled diabetes mellitus, type 2, insulin requiring, as per equity holder; hemoglobin is 12.1. She came with diabetic ketoacidosis; hypocalcemia, we will replace; history of hypertension; hepatitis B; gastric sleeve. According to the equity holder, patient should be on the insulin. She started Levemir. Getting IV fluid. History of morbid obesity, underwent gastric sleeve. History of polycystic ovary syndrome and previously on metformin therapy. Gastrointestinal and deep vein thrombosis prophylaxes. Repeat labs. Discussion on the patient with nursing staff. We will follow up. Radha Byrnes MD [facility] # [id number]
[2018-06-18] MEDS ORDERED: Pantoprazole 40 mg EC Tab PO SCH (06:00)
[2018-06-18 06:33] LABS: HEMOGLOBIN 12.8 g/dL (12.0-16.0); MEAN CELL VOLUME 84.8 fl (80.0-105.0); MEAN CORPUSCULAR HEMOGLOBIN 28.6 pg (25.0-35.0); MEAN CORPUSCULAR HGB CONC 33.7 g/dl (31.0-37.0); MEAN PLATELET VOLUME 10.5 fl (7.0-11.0); RBC 4.48 10^6/uL (3.5-6.1); WHITE BLOOD COUNT 7.6 10^3/uL (4.5-11.0)
[2018-06-18] MEDS: Insulin Lispro (humaLOG) LOW Coverage SC SCH ×2 (08:04→11:26)
[2018-06-18 08:07] LABS: BLOOD UREA NITROGEN 9 mg/dL (7-21); GFR NON-AFRICAN AMERICAN > 60
[2018-06-18 08:08] LABS: CALCIUM 8.2 mg/dL (8.4-10.5)
[2018-06-18] MEDS: Insulin Lispro 1 UNITS/0.01 ML SC SCH ×2 (08:24→11:48)
--- NOTE | 2018-06-18 08:33 | PN ---
DATE: 06/17/2018 ENDO FOLLOWUP NOTE LOCATION: In room 360. SUBJECTIVE: This is a 32-year-old female with recent uncontrolled type 2 insulin-requiring diabetes, presenting here with diabetic ketoacidosis and dehydration and is now remarkably improved clinically and metabolically overnight as noted. She received . Her hemoglobin A1c is 12.1%, which is extremely elevated and indicative of suboptimal metabolic control of her diabetic condition even prior to this admission. metformin about 2 years as her blood sugars actually normalized. She admits, however, to have had no recent medical followup nor lab testing otherwise as noted. LABORATORY DATA: Chemistries today showed a BUN of 30, sodium 134, potassium 3.4, chloride 107, CO2 of 25, glucose 192, and creatinine of 0.4. Her glucose level at this time was 171 and at bedtime was 222 mg/dL; however, her triglyceride levels are extremely elevated at 439 and cholesterol of 238 with an albumin level of 2.9. ASSESSMENT: This is a 32-year-old female with uncontrolled and decompensated type 2 insulin-requiring diabetes, presenting here with diabetic ketoacidosis and dehydration and seems to improve clinically and metabolically as noted thereof. PLAN OF MANAGEMENT: We will continue the vigorous IV hydration as given with normal saline infusion followed by half normal saline running at 125 mL/hour as ordered. We will also obtain serial chemistries and supplement accordingly as needed. We will modify at time basal and bolus insulin regimen and increase the Levemir to 34 units subcu at bedtime daily to start tonight. We will also increase the Humalog to 12 units subcu t.i.d. before meals as ordered. We will initiate diabetic education to include insulin self-administration at this time. We will also continue the low-dose correction scale using Humalog insulin as given. We will follow with you. Maria Luisa Mcmullen MD
[2018-06-18 09:01] VITALS: BP 127/82; PULSE 80; RESP 18; TEMP 97.5
[2018-06-18] MEDS: Potassium Chloride 20 mEq ER Tab PO SCH (09:09)
[2018-06-18] MEDS: Calcium-Vit D 250 mg-125 Units Tab UD PO SCH (09:09)
--- NOTE | 2018-06-18 19:16 | PN ---
DATE OF CONSULTATION: 06/18/2018 ROOM: 360. HISTORY OF PRESENT ILLNESS: This is a 32-year-old female with recent uncontrolled type 2 insulin-requiring diabetes, presenting here with diabetic ketoacidosis and dehydration and has since then improved clinically and metabolically as noted thereof. Her glucose levels today have ranged from 148-172 mg/dL. Her chemistry showed a BUN of 9, sodium 136, potassium 3.8, chloride 106, CO2 of 26, glucose 165, and creatinine 0.4. So, her bedtime glucose was 223 and her fasting glucose was 177. However, her hemoglobin A1c was 12.0%. So, at this time, we will recommend a modified basal and bolus insulin regimen for eventual discharge today with Levemir given as 34 units subcu at bedtime daily to start tonight. We will also continue the Humalog given as 12 units subcu t.i.d. before meals to start today as ordered. She has been advised to continue the upper-mentioned drug regimen and to notify us for any glucose levels below 80 or above 300 mg/dL for insulin dose adjustments and possibly switching her over to a combination of oral hypoglycemic therapy as indicated. Our diabetic nurse educator, Ms. Kaitlin Healy, came in today to teach the patient insulin self-administration as noted. We will follow. Maria Luisa Mcmullen MD
[2018-06-19 16:27] LABS: C-PEPTIDE 0.88 ng/mL (0.80-3.85)
== END 2018-06-18 15:30 | disposition home or self-care (01) | DRG 639 ==
LOC: ED 05:25 → ERH 06:59 → ICU 08:31 → 3RNO 06-16 13:02
PROVIDERS: ADMIT Internal Medicine; ATTEND Internal Medicine
DX: E11.10 Type 2 diabetes mellitus with ketoacidosis without coma (principal); E86.0 Dehydration; E87.6 Hypokalemia; E28.2 Polycystic ovarian syndrome; I10 Essential (primary) hypertension; E83.51 Hypocalcemia; Z91.14 Patient's other noncompliance with medication regimen; Z91.19 Patient's noncompliance with other medical treatment and regimen; Z79.4 Long term (current) use of insulin; Z98.84 Bariatric surgery status; Z83.3 Family history of diabetes mellitus

== ENCOUNTER 2018-12-09 09:56 | Emergency (ER) | payer OTHER ==
[2018-12-09 09:56] VITALS: BMI 33.6
[2018-12-09 10:13] VITALS: RESP 18; TEMP 98.2
[2018-12-09] MEDS ORDERED: Sodium Chloride 0.9% 1,000 ML IV STA (10:55)
[2018-12-09 11:30] LABS: BASO # 0.03 K/mm3 (0.0-2.0); BASO % 0.4 % (0.0-3.0); EOS # 0.1 (0.0-0.7); EOS % 1.1 % (1.5-5.0); HEMOGLOBIN 12.5 g/dL (12.0-16.0); LYMPH # 2.3 (1.2-3.4); LYMPH % 27.1 % (22.0-35.0); MEAN CELL VOLUME 83.4 fl (80.0-105.0); MEAN CORPUSCULAR HEMOGLOBIN 27.2 pg (25.0-35.0); MEAN CORPUSCULAR HGB CONC 32.6 g/dl (31.0-37.0); MEAN PLATELET VOLUME 10.1 fl (7.0-11.0); MONO # 0.4 (0.1-0.6); MONO % 5.1 % (1.0-6.0); RBC 4.59 10^6/uL (3.5-6.1); RED CELL DISTRIBUTION WIDTH 13.7 % (11.5-14.5); WHITE BLOOD COUNT 8.4 10^3/uL (4.5-11.0)
[2018-12-09 11:31] LABS: URINE APPEARANCE CLEAR (CLEAR); URINE BILIRUBIN NEGATIVE (NEGATIVE); URINE BLOOD NEGATIVE (NEGATIVE); URINE COLOR LIGHT YELLOW (YELLOW); URINE GLUCOSE (UA) 100 mg/dL (NEGATIVE); URINE LEUKOCYTE ESTERASE NEGATIVE Leu/uL (NEGATIVE); URINE PROTEIN NEGATIVE mg/dL (<30 mg/dL); URINE UROBILINOGEN 0.2 E.U./dL (<1 E.U./dL)
[2018-12-09 11:33] LABS: HCG,QUALITATIVE URINE NEGATIVE (NEGATIVE)
[2018-12-09 11:38] LABS: ALB/GLOB RATIO 0.9 (1.1-1.8); ALT/SGPT 11 U/L (7-56); AST/SGOT 22 U/L (14-36); BLOOD UREA NITROGEN 14 mg/dL (7-21); GFR NON-AFRICAN AMERICAN > 60; INR 1.04; PARTIAL THROMBOPLASTIN TIME 37.9 Seconds (26.9-38.3); PROTHROMBIN TIME 11.8 SECONDS (9.4-12.5)
--- NOTE | 2018-12-09 12:41 | CT ---
Date of service: 12/09/2018 PROCEDURE: CT Abdomen and Pelvis without intravenous contrast HISTORY: stone search, right COMPARISON: None. TECHNIQUE: Without contrast.. Contrast dose: Radiation dose: Total exam DLP = 1164.36 mGy-cm. This CT exam was performed using one or more of the following dose reduction techniques: Automated exposure control, adjustment of the mA and/or kV according to patient size, and/or use of iterative reconstruction technique. FINDINGS: LOWER THORAX: There is a suture line in the stomach consistent with a gastric sleeve. LIVER: Unremarkable. No gross lesion or ductal dilatation. GALLBLADDER AND BILE DUCTS: Unremarkable. PANCREAS: Unremarkable. No gross lesion or ductal dilatation. SPLEEN: Unremarkable. ADRENALS: Unremarkable. No mass. KIDNEYS AND URETERS: Unremarkable. No hydronephrosis. No solid mass. VASCULATURE: Unremarkable. No aortic aneurysm. No aortic atherosclerotic calcification or mural plaque present. BOWEL: Unremarkable. No obstruction. No gross mural thickening. APPENDIX: Unremarkable. Normal appendix. PERITONEUM: Unremarkable. No free fluid. No free air. LYMPH NODES: Unremarkable. No enlarged lymph nodes. BLADDER: Unremarkable. REPRODUCTIVE: Unremarkable. BONES: No acute fracture. OTHER FINDINGS: None. IMPRESSION: No acute intra-abdominal findings. No evidence of urolithiasis
--- NOTE | 2018-12-09 14:40 | ED PDOC ---
Arrival/HPI - General Chief Complaint: Back Pain Time Seen by Provider: 12/09/18 10:16 Historian: Patient - History of Present Illness Narrative History of Present Illness (Text): 12/09/18 15:52 33 y/o female with PMH of diabetes presents to the ED c/o right flank pain x 1 week. Pt originally started in the mid back and has moved to the right flank. Pain is sharp and intermittent. No associated symptoms. Pt works at an [employer] where she had a quick ultrasound done, and they told her she had a right sided kidney stone. Pt has a urologist appointment for later this week. Denies fever, chills, nausea, vomiting, abdominal pain, diarrhea, constipation, saddle anesthesia, urinary incontinence, vaginal bleeding, dysuria, urinary frequency, chest pain, SOB, or any other associated complaints. Past Medical History - Provider Review Nursing Documentation Reviewed: Yes - Past History Past History: No Previous - Infectious Disease Hx of Infectious Diseases: None - Reproductive Menopause: No - Cardiac Hx Hypertension: Yes - Pulmonary Hx Respiratory Disorders: No - Neurological Hx Neurological Disorder: No - HEENT Hx HEENT Disorder: No - Renal Hx Renal Disorder: No - Endocrine/Metabolic Hx Diabetes Mellitus Type 2: Yes - Hematological/Oncological Hx Hepatitis B: Yes - Integumentary Hx Dermatological Disorder: No - Musculoskeletal/Rheumatological Hx Musculoskeletal Disorders: No Hx Falls: No - Gastrointestinal Hx Gastrointestinal Disorders: Yes (HX: HEP B) - Genitourinary/Gynecological Hx Genitourinary Disorders: Yes - Psychiatric Hx Psychophysiologic Disorder: No Hx Substance Use: No - Surgical History Hx Gastric Bypass Surgery: Yes (Gastric Sleeve) - Anesthesia Hx Anesthesia: Yes Family/Social History - Physician Review Nursing Documentation Reviewed: Yes Family/Social History: No Known Family HX Smoking Status: Never Smoked Hx Alcohol Use: No Hx Substance Use: No Allergies/Home Meds Allergies/Adverse Reactions: Allergies No Known Allergies Allergy (Verified 06/15/18 13:39) Home Medications: Home Meds Medication Instructions Recorded Confirmed Sitagliptin Phos/Metformin HCl 50 mg PO BID 12/09/18 12/09/18 [Janumet 50-500 mg Tablet] Review of Systems - Review of Systems Constitutional: Normal. absent: Weight Change Eyes: Normal. absent: Vision Changes ENT: Normal. absent: Hearing Changes Respiratory: Normal. absent: SOB, Cough Cardiovascular: Normal. absent: Chest Pain, Palpitations, Syncope Gastrointestinal: Normal. absent: Abdominal Pain, Stool Changes, Constipation, Diarrhea, Nausea, Vomiting, Appetite Changes, Hematochezia, Hematemesis Genitourinary Female: Normal. absent: Dysuria, Frequency, Vaginal Bleeding, Vaginal Discharge Musculoskeletal: Back Pain (and right flank pain) Skin: Normal. absent: Rash Neurological: Normal. absent: Headache, Dizziness Physical Exam Vital Signs Reviewed: Yes Vital Signs Temp Pulse Resp BP Pulse Ox 12/09/18 10:07 98.2 F 87 18 152/89 H 98 Temperature: Afebrile Blood Pressure: Normal Pulse: Regular Respiratory Rate: Normal Appearance: Positive for: Well-Appearing, Non-Toxic, Comfortable Pain Distress: None Mental Status: Positive for: Alert and Oriented X 3 - Systems Exam Head: Present: Atraumatic, Normocephalic Pupils: Present: PERRL Extroacular Muscles: Present: EOMI Conjunctiva: Present: Normal Mouth: Present: Moist Mucous Membranes Neck: Present: Normal Range of Motion. No: Meningeal Signs Respiratory/Chest: Present: Clear to Auscultation, Good Air Exchange. No: Respiratory Distress, Accessory Muscle Use Cardiovascular: Present: Regular Rate and Rhythm, Normal S1, S2, Peripheal Pulses Present Abdomen: Present: Tenderness (right flank), Normal Bowel Sounds, Other (NO RLQ tenderness). No: Distention, Peritoneal Signs Back: Present: Normal Inspection, CVA Tenderness (right side), Paraspinal Tenderness (mild right lower thoracic). No: Midline Tenderness Upper Extremity: Present: Normal Inspection, Normal ROM, NORMAL PULSES, Neurovascularly Intact, Capillary Refill < 2s. No: Cyanosis, Edema, Temperature Abnormalties Lower Extremity: Present: Normal Inspection, NORMAL PULSES, Normal ROM, Neurovascularly Intact, Capillary Refill < 2 s. No: Edema, Temperature Abnormalties Neurological: Present: GCS=15, CN II-XII Intact, Speech Normal, Motor Func Grossly Intact, Normal Sensory Function, Gait Normal Skin: Present: Warm, Dry, Normal Color. No: Rashes Psychiatric: Present: Alert, Oriented x 3, Normal Insight, Normal Concentration, Normal Affect, Normal Mood Medical Decision Making ED Course and Treatment: Initial Plan: * CBC, CMP * Lipase * Coags * UA * CT Abd/Pelvis without contrast * IVF * Toradol Patient reports complete resolution of symptoms with medication and fluids. CT unremarkable, no kidney stone. Pelvic ultrasound ordered to r/o torsion. Pelvic ultrasound unremarkable Bloodwork and urine results reviewed, unremarkable. Advised PMD followup. Diagnostic testing results and plan of care discussed with patient. Strict instructions given regarding prescription use, importance of followup, and signs/symptoms to return to ER including RLQ pain, SOB, chest pain, fever, or any other new/worsening symptoms. Pt verbalized understanding of discussion. Patient is A&Ox3, ambulating with steady gait, with vital signs stable for discharge. - Lab Interpretations Lab Results: PT 11.8 SECONDS (9.4-12.5) 12/09/18 10:40 INR 1.04 12/09/18 10:40 APTT 37.9 Seconds (26.9-38.3) 12/09/18 10:40 Total Bilirubin 0.4 mg/dL (0.2-1.3) 12/09/18 10:40 AST 22 U/L (14-36) 12/09/18 10:40 ALT 11 U/L (7-56) 12/09/18 10:40 Alkaline Phosphatase 74 U/L (38-126) 12/09/18 10:40 Total Protein 8.3 g/dL (5.8-8.3) 12/09/18 10:40 Albumin 4.0 g/dL (3.0-4.8) 12/09/18 10:40 Globulin 4.3 gm/dL 12/09/18 10:40 Albumin/Globulin Ratio 0.9 (1.1-1.8) L 12/09/18 10:40 Urine Color Light yellow (YELLOW) 12/09/18 10:40 Urine Appearance Clear (CLEAR) 12/09/18 10:40 Urine pH 6.0 (4.7-8.0) 12/09/18 10:40 Ur Specific [place] 1.015 (1.005-1.035) 12/09/18 10:40 Urine Protein Negative mg/dL (<30 mg/dL) 12/09/18 10:40 Urine Glucose (UA) 100 mg/dL (NEGATIVE) H 12/09/18 10:40 Urine Ketones Negative mg/dL (NEGATIVE) 12/09/18 10:40 Urine Blood Negative (NEGATIVE) 12/09/18 10:40 Urine Nitrate Negative (NEGATIVE) 12/09/18 10:40 Urine Bilirubin Negative (NEGATIVE) 12/09/18 10:40 Urine Urobilinogen 0.2 E.U./dL (<1 E.U./dL) 12/09/18 10:40 Ur Leukocyte Esterase Negative Caitlin/uL (NEGATIVE) 12/09/18 10:40 Urine HCG, Qual Negative (NEGATIVE) 12/09/18 10:40 Urine HCG, Qual Negative (NEGATIVE) 12/09/18 10:40 12/09/18 10:40 12/09/18 10:40 Lab Results 12/09/18 10:40: Acetaminophen < 10.0 L 12/09/18 10:40: PT 11.8, INR 1.04, APTT 37.9 12/09/18 10:40: Sodium 138, Potassium 4.0, Chloride 102, Carbon Dioxide 28, Anion Gap 12, BUN 14, Creatinine 0.5 L, Est GFR ( Amer) > 60, Est GFR (Non-Af Amer) > 60, Random Glucose 145 H, Calcium 9.0, Total Bilirubin 0.4, AST 22, ALT 11, Alkaline Phosphatase 74, Total Protein 8.3, Albumin 4.0, Globulin 4.3, Albumin/Globulin Ratio 0.9 L 12/09/18 10:40: Urine Color Light yellow, Urine Appearance Clear, Urine pH 6.0, Ur Specific [place] 1.015, Urine Protein Negative, Urine Glucose (UA) 100 H, Urine Ketones Negative, Urine Blood Negative, Urine Nitrate Negative, Urine Bilirubin Negative, Urine Urobilinogen 0.2, Ur Leukocyte Esterase Negative, Urine HCG, Qual Negative 12/09/18 10:40: WBC 8.4, RBC 4.59, Hgb 12.5, Hct 38.3, MCV 83.4, MCH 27.2, MCHC 32.6, RDW 13.7, Plt Count 239, MPV 10.1, Neut % (Auto) 66.3, Lymph % (Auto) 27.1, [place] % (Auto) 5.1, Eos % (Auto) 1.1 L, Baso % (Auto) 0.4, Lymph # (Auto) 2.3, [place] # (Auto) 0.4, Eos # (Auto) 0.1, Baso # (Auto) 0.03, Absolute Neuts (a uto) 5.56 I have reviewed the lab results: Yes - RAD Interpretation Narrative RAD Interpretations (Text): 12/09/18 16:42 Pelvic Ultrasound: FINDINGS: UTERUS: Measures 5.76 x 3.29 x 3.46 cm. Normal in size and appearance. There is a small hypoechoic lesion in the fundus consistent with a small fibroid. ENDOMETRIUM: Measures 3.6 mm in diameter. Unremarkable. CERVIX: 3 cm in length RIGHT OVARY: Measures 2.94 x 1.91 x 1.85 cm. No solid mass. Normal flow. LEFT OVARY: Measures 3.0 x 2.58 x 1.48 cm. No solid mass. Normal flow. Small follicular cysts FREE FLUID: No significant free fluid noted. OTHER FINDINGS: None. IMPRESSION: Unremarkable pelvic ultrasound. CT Abd/Pelvis without contrast: FINDINGS: LOWER THORAX: There is a suture line in the stomach consistent with a gastric sleeve. LIVER: Unremarkable. No gross lesion or ductal dilatation. GALLBLADDER AND BILE DUCTS: Unremarkable. PANCREAS: Unremarkable. No gross lesion or ductal dilatation. SPLEEN: Unremarkable. ADRENALS: Unremarkable. No mass. KIDNEYS AND URETERS: Unremarkable. No hydronephrosis. No solid mass. VASCULATURE: Unremarkable. No aortic aneurysm. No aortic atherosclerotic calcification or mural plaque present. BOWEL: Unremarkable. No obstruction. No gross mural thickening. APPENDIX: Unremarkable. Normal appendix. PERITONEUM: Unremarkable. No free fluid. No free air. LYMPH NODES: Unremarkable. No enlarged lymph nodes. BLADDER: Unremarkable. REPRODUCTIVE: Unremarkable. BONES: No acute fracture. OTHER FINDINGS: None. IMPRESSION: No acute intra-abdominal findings. No evidence of urolithiasis Radiology Orders: 12/09/18 10:50 ABD & PELVIS W/O PO OR IV CONT [CT] Stat 12/09/18 13:35 TRANSVAGINAL [US] Stat Road Builder: Radiologist - Medication Orders Current Medication Orders: Discontinued Medications Sodium Chloride (Sodium Chloride 0.9%) 1,000 mls @ 999 mls/hr IV .Q1H1M STA Stop: 12/09/18 11:55 Last Admin: 12/09/18 11:02 Dose: 999 mls/hr eMAR Start Stop Document 12/09/18 11:02 DM (Rec: 12/09/18 11:02 DM [facility] [place]-[facility]-[id number]) Intravenous Solution Start Date 12/09/18 Start Time 11:02 Ketorolac Tromethamine (Toradol) 30 mg IVP STAT STA Stop: 12/09/18 10:51 Last Admin: 12/09/18 11:01 Dose: 30 mg MAR Pain Assessment Document 12/09/18 11:01 DM (Rec: 12/09/18 11:02 [facility] [place] Pain Reassessment Is this a pain reassessment? No Pain Scale Used Protocol: PSCALES Pain Scale Used Numeric Location Left, Right or Bilateral Right Description Description Constant Acceptable Level of Pain 7 IVP Administration Document 12/09/18 11:01 DM (Rec: 12/09/18 11:02 [facility] [place] Charges for Administration # of IVP Administrations 1 Disposition/Present on Arrival - Present on Arrival Any Indicators Present on Arrival: No History of DVT/PE: No History of Uncontrolled Diabetes: No Urinary Catheter: No History of Decub. Ulcer: No History Surgical Site Infection Following: None - Disposition Have Diagnosis and Disposition been Completed?: Yes Diagnosis: Flank pain Disposition: HOME/ ROUTINE Disposition Time: 16:45 Patient Plan: Discharge Condition: IMPROVED Discharge Instructions (ExitCare): Acute Abdomen (Belly Pain), Flank Pain (DC) Additional Instructions: Ibuprofen every 8 hours as needed for pain, take with food Lidoderm patches daily, 12 hours on 12 hours off Increase fluids Rest, no strenuous activities Followup with primary doctor within 2 days Keep appointment with urology Return to ER with any new/worsening symptoms Prescriptions: Ibuprofen [Motrin Tab] 600 mg PO Q8 PRN #30 tab PRN Reason: Pain, Moderate (4-7) Lidocaine 5% [Lidoderm] 1 ea TD DAILY PRN #30 patch PRN Reason: Pain, Mild (1-3) Referrals: Radha Byrnes MD [Primary Care Provider] - Follow up with primary Forms: [employer] (Georgian), WORK NOTE
--- NOTE | 2018-12-09 16:37 | US ---
Date of service: 12/09/2018 HISTORY: Right flank, back pain COMPARISON: None available. TECHNIQUE: Transvaginal FINDINGS: UTERUS: Measures 5.76 x 3.29 x 3.46 cm. Normal in size and appearance. There is a small hypoechoic lesion in the fundus consistent with a small fibroid. ENDOMETRIUM: Measures 3.6 mm in diameter. Unremarkable. CERVIX: 3 cm in length RIGHT OVARY: Measures 2.94 x 1.91 x 1.85 cm. No solid mass. Normal flow. LEFT OVARY: Measures 3.0 x 2.58 x 1.48 cm. No solid mass. Normal flow. Small follicular cysts FREE FLUID: No significant free fluid noted. OTHER FINDINGS: None. IMPRESSION: Unremarkable pelvic ultrasound.
[2018-12-09 18:08] VITALS: BP 134/76; PULSE 85; O2SAT 99
== END 2018-12-09 17:34 | disposition home or self-care (01) ==
LOC: ED 09:56
DX: E11.9 Type 2 diabetes mellitus without complications (principal); I10 Essential (primary) hypertension; Z98.84 Bariatric surgery status
CPT/HCPCS: 74176; 76830; 80053; 80329; 81003; 84703; 85025; 85610; 85730; 87086; 96374; 99283; J1885; J7030